=== PATIENT | female | born 2005 | race Caucasian/White ===

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

== ENCOUNTER 2025-01-03 10:55 | Outpatient (CLI) | payer MEDICAID ==
--- NOTE | 2025-01-03 13:16 | RADIOLOGY REPORT ---
PROCEDURE: MR MRI HEAD INDICATION: HEADACHE, UNSPECIFIED EXAM DATE: 01/03/2025 11:24 AM COMPARISON: None TECHNIQUE: MRI of the brain with and without 12 cc clariscan intravenous contrast. FINDINGS: Diffusion weighted images of the brain demonstrate no evidence of acute infarction. There is no evidence of acute intracranial hemorrhage, extra-axial collection, mass effect, midline s hift, herniation or hydrocephalus. The ventricles, sulci and cisterns appear age appropriate. The signal intensities of the brain parenchyma are within normal limits. No abnormal enhancement. There are no signal abnormalities on the susceptibility weighted sequences. The major vascular flow voids are present. The visualized paranasal sinuses and mastoid air cells are clear. The surrounding soft tissues and o sseous structures are unremarkable. IMPRESSION: 1. No evidence of acute infarction, intracranial hemorrhage, mass effect or hydrocephalus. No abnorma l enhancement. HS:Y
[2025-01-03] MEDS ORDERED: GADOTERATE MEGLUMINE 7.5 MMOL/15 ML VIAL IV ONE (15:42)
== END 2025-01-03 23:59 | disposition home or self-care (01) ==
LOC: MRI 10:55
PROVIDERS: ATTEND Physician Assistant
DX: R51.9 Headache, unspecified (principal)
CPT/HCPCS: 70553; A9575